=== PATIENT | female | born 1950 | race African-American/Black ===

== ENCOUNTER → 2019-04-30 | Outpatient (CLI) | payer OTHER ==
[~2019-04-30] MED LIST: CELEBREX200 MG PO; FISH OIL1 IU PO; MULTIPLE VITAMI1 CAP PO; NEXIUM 20MG CAP20 MG PO; PREMARIN0.625 MG PO; VITAMIN D; VITAMIN D1000 IU PO; VITAMIN E800 IU PO; [UNRECOGNIZED DRUG - OTHER]
== END ==
LOC: MC.RAD 07:31
DX: Z12.31 Encounter for screening mammogram for malignant neoplasm of breast (principal)

== ENCOUNTER → 2019-05-06 | Outpatient (CLI) | payer MEDICARE | LOC: COL.RAD 10:37 | DX: M17.12 Unilateral primary osteoarthritis, left knee (principal); W10.8XXA Fall (on) (from) other stairs and steps, initial encounter ==

== ENCOUNTER → 2019-05-16 | Outpatient (CLI) | payer OTHER ==
[2019-05-16 13:01] LABS: CALCIUM 9.3 mg/dL (8.4-10.2); CREATININE, serum 1.14 (0.52-1.25); POTASSIUM 4.7 mmol/L (3.4-5.0)
[2019-05-16 22:47] LABS: RHEUMATOID FACTOR-SCREEN <15 IU/mL (0-29)
[2019-05-19 12:11] LABS: ANGIOTENSIN CONVERTING ENZYME 47 U/L (16 - 85)
== END ==
LOC: COL.LAB 12:08
PROVIDERS: Internal Medicine Pulmonary Disease
DX: D86.9 Sarcoidosis, unspecified (principal)

== ENCOUNTER 2019-05-23 14:15 | Outpatient (RCR) | payer MEDICARE | END 2019-06-07 13:56 | disposition home or self-care (01) | LOC: WSPT 14:15 | DX: M25.562 Pain in left knee (principal); W10.8XXA Fall (on) (from) other stairs and steps, initial encounter ==

== ENCOUNTER → 2019-05-30 | Outpatient (CLI) | payer OTHER | LOC: COL.VAS 12:56 | DX: I08.1 Rheumatic disorders of both mitral and tricuspid valves (principal); D86.9 Sarcoidosis, unspecified ==